=== PATIENT | male | born 1990 ===

== ENCOUNTER 2023-03-01 16:28 | Emergency (ER) | payer OTHER ==
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
[2023-03-01 17:54] VITALS: TEMP 98
[2023-03-01] MEDS ORDERED: LIDOCAINE/EPINEPHR/TETRACAINE 5 ML BOTTLE TOPICAL ONE (18:27)
[2023-03-01] MEDS ORDERED: IBUPROFEN 800 MG TAB PO STA (18:58)
[2023-03-01] MEDS ORDERED: Acetaminophen-Codeine 300-30mg TAB PO STA (19:16)
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
[2023-03-01 21:18] VITALS: BP 129/81; PULSE 87; RESP 16
== END 2023-03-01 21:11 | disposition home or self-care (01) ==
LOC: EC 16:28
DX: S01.01XA Laceration without foreign body of scalp, initial encounter (principal); F17.200 Nicotine dependence, unspecified, uncomplicated; F12.90 Cannabis use, unspecified, uncomplicated; W19.XXXA Unspecified fall, initial encounter
CPT/HCPCS: 12002; 70450; 99284